=== PATIENT | female | born 1970 | race Hispanic/Latino ===

== ENCOUNTER 2021-09-28 10:51 | Emergency (ER) | payer OTHER, BC ==
[~2021-09-28] VITALS: Ht 144.8 cm; Wt 49.0 kg
[2021-09-28 12:13] LABS: HEMATOCRIT 40.9 % (37.0-47.0); HEMOGLOBIN 13.4 g/dl (12.0-16.0); IMMATURE GRANULOCYTES 0.2 % (0.0-5.0); MEAN CORPUSCULAR HGB 26.2 pG CALC (26.0-32.0); MEAN CORPUSCULAR HGB CONC 32.8 g/dL CAL (32.0-36.0); NEUT# 2.18 thou/uL (2.00-7.15); RED BLOOD COUNT 5.11 mill/uL (4.20-5.60); RED CELL DISTRI WIDTH 12.2 % (11.5-15.5)
[2021-09-28 12:20] LABS: ALBUMIN 4.1 g/dL (3.2-5.0); ALKALINE PHOSPHATASE 91 u/l (38-126); ANION GAP 14 (6-22 (CALC)); BILIRUBIN, TOTAL 0.7 mg/dL (0.0-1.4); BUN 9 mg/dL (7-17); BUN/CREATININE RATIO 22 (12-20 (CALC)); CARBON DIOXIDE 25 mmol/l (22-30); CHLORIDE 99 mmol/l (95-108); CREATININE 0.4 mg/dL (0.5-1.0); GFR FOR AFR.AMER. > 60 ML/MIN (>=60 (CALC)); GFR OTHER RACES > 60 ML/MIN (>=60 (CALC)); POTASSIUM 3.9 mmol/l (3.5-5.1); SGOT/AST 22 u/l (14-36); SODIUM 134 mmol/l (137-146); TOTAL PROTEIN 7.9 g/dL (6.3-8.2)
[2021-09-28 12:32] LABS: MYOGLOBIN 20 ng/mL (0 - 62)
[2021-09-28] MEDS ORDERED: NAPROXEN500 MG PO (14:54)
[2021-09-28 15:00] VITALS: BP 103/76
== END 2021-09-28 15:13 | disposition home or self-care (01) | DRG 552 ==
LOC: ED 10:51
PROVIDERS: Emergency Medicine
DX: S13.4XXA Sprain of ligaments of cervical spine, initial encounter (principal); R07.89 Other chest pain; I10 Essential (primary) hypertension; E11.9 Type 2 diabetes mellitus without complications; V44.6XXA Car passenger injured in collision with heavy transport vehicle or bus in traffic accident, initial encounter

== ENCOUNTER 2023-01-26 15:53 | Emergency (ER) | payer OTHER ==
[2023-01-26] VITALS (10 sets, daily range): BP systolic 119–156; BP diastolic 69–85
[~2023-01-26] VITALS: Ht 144.8 cm; Wt 48.9 kg
[~2023-01-26 15:53] MED LIST: NAPROXEN500 MG PO
[2023-01-26 16:16] LABS: BASO% 0.4 % (0-3); EOS% 0.5 % (0-8); HEMATOCRIT 38.9 % (37.0-47.0); HEMOGLOBIN 12.7 g/dl (12.0-16.0); IMMATURE GRANULOCYTES 0.2 % (0.0-5.0); MEAN CELL VOLUME 81.4 fL CALC (80.0-100.0); MEAN CORPUSCULAR HGB 26.6 pG CALC (26.0-32.0); MEAN CORPUSCULAR HGB CONC 32.6 g/dL CAL (32.0-36.0); MONO% 6.6 % (2-13); NEUT# 2.78 thou/uL (2.00-7.15); NEUT% 49.3 % (42-76); RED BLOOD COUNT 4.78 mill/uL (4.20-5.60); RED CELL DISTRI WIDTH 12.6 % (11.5-15.5)
[2023-01-26 16:19] LABS: URINE BILIRUBIN - DIPSTICK Negative (NEGATIVE); URINE BLOOD DIPSTICK Negative (NEGATIVE); URINE GLUCOSE - DIPSTICK 100 mg/dL (NEGATIVE); URINE KETONE Negative (NEGATIVE); URINE LEUK ESTERASE Negative (NEGATIVE); URINE NITRITE - DIPSTICK Negative (Negative); URINE PROTEIN - DIPSTICK Negative (NEG-TRACE); URINE SPECIFIC GRAVITY >=1.030; URINE UROBILINOGEN - DIPSTICK 0.2 E.U./dL (0.2)
[2023-01-26 16:20] LABS: URINE COLOR Yellow
[2023-01-26 16:34] LABS: ALBUMIN 4.5 g/dL (3.2-5.0); ALKALINE PHOSPHATASE 74 u/l (38-126); ANION GAP 19 (6-22 (CALC)); BILIRUBIN, TOTAL 0.7 mg/dL (0.02-1.3); BUN 10 mg/dL (7-17); BUN/CREATININE RATIO 15 (12-20 (CALC)); CARBON DIOXIDE 26 mmol/l (22-30); CHLORIDE 100 mmol/l (95-108); CREATININE 0.6 mg/dL (0.5-1.0); GFR FOR AFR.AMER. > 60 ML/MIN (>=60 (CALC)); GFR OTHER RACES > 60 ML/MIN (>=60 (CALC)); LIPASE 99 u/l (23-300); POTASSIUM 3.7 mmol/l (3.5-5.1); SGOT/AST 31 u/l (14-36); TOTAL PROTEIN 8.5 g/dL (6.3-8.2)
[2023-01-26 16:35] LABS: SODIUM 141 mmol/l (137-146)
[2023-01-26] MEDS ORDERED: MIRALAX17 GM PO (20:19)
[2023-01-26] MEDS ORDERED: DICYCLOMINE HYD10 MG PO (20:19)
== END 2023-01-26 20:37 | disposition home or self-care (01) | DRG 392 ==
LOC: ED 15:53
PROVIDERS: Nurse Practitioner
DX: K59.00 Constipation, unspecified (principal); I10 Essential (primary) hypertension
CPT/HCPCS: Q9967; S0164